=== PATIENT | female | born 1950 | race Caucasian/White ===

== ENCOUNTER 2020-04-24 06:20 | Day surgery (SDC) | payer MEDICARE ==
[~2020-04-24] VITALS: Ht 162.6 cm; Wt 52.2 kg
[~2020-04-24 06:20] MED LIST: CALCIUM 600 +1 EA12 PO; DETROL LA4 MG PO; DITROPAN XL10 MG PO; FLUOXETINE HCL20 MG PO; GARLIC1 EAC1 PO; GLUCOSAMINE CH1 EAC1 PO; HYDROCHLOROTHIA50 MG PO; MAGNESIUM; NORCO 5-325 TA1 EACH PO; OMEPRAZOLE20 MG PO; ONE DAILY WOME1 EACH PO; PANTOPRAZOLE SO40 MG PO; TOLTERODINE TART4 MG PO; TOVIAZ8 MG PO; TRETINOIN20 G1 TOP; VITAMIN B-1001 EACH PO; VITAMIN E1000 UNIT PO
[2020-04-24] MEDS ORDERED: OXYBUTYNIN CHLO10 MG PO (06:34)
[2020-04-24] MEDS ORDERED: PROZAC20 MG PO (06:35)
[2020-04-24] MEDS ORDERED: PROTONIX20 MG PO (06:35)
--- NOTE | 2020-04-24 08:28 | NUR ---
04/24/20 0828 Lissette Fernandez 0820- PT TO PACU IN SUPINE POSITION. AWAKENS EASILY TO VOICE. RESPONDING TO QUESTIONS APPROPRIATELY. DENIES PAIN OR NAUSEA. BREATHING EASY AND UNLABORED. SPO2 >95% ON 3 L O2 VIA NC. PT ENCOURAGED TO PASS GAS. 0827- MD AT BEDSIDE TALKING WITH PATIENT. PT AWAKENS EASILY TO VOICE AND TALKING APPROPRIATELY WITH MD. BREATHING EASY AND UNLABORED. O2 TITRATED DOWN TO ROOM AIR. SPO2 >95% .
--- NOTE | 2020-04-24 10:26 | NUR ---
PT ALERT, ORIENTED AND SEEMS VERY MUCH IN CONTROL. PT MENTIONED THAT THIS EGD IS FOLLOW-UP TO CHECK FOR BLEEDING. ALL QUESTIONS ASKED-ANSWERED. PT ASKED FOR PRAYER. WILL FOLLOW NEEDED
--- NOTE | 2020-04-25 07:48 | OR ---
[facility] [address], [place] [address] Signed DATE OF OPERATION: 04/24/2020 SURGEON: Melissa Wolf MD PREOPERATIVE DIAGNOSES: 1. History of upper gastrointestinal bleeding in 2019 with pre-pyloric antral ulcers. 2. Surveillance history of mild proctitis. POSTOPERATIVE DIAGNOSES: 1. Healed gastric ulcers. 2. Benign-appearing midesophageal plaques (biopsied). 3. Scattered diverticula of colon. 4. Mild proctitis (biopsied). PROCEDURES: 1. Esophagogastroduodenoscopy with biopsy. 2. Total colonoscopy to cecum with rectal biopsy. ANESTHESIA: Intravenous sedation, fentanyl 150 mcg and Versed 5 mg. INDICATIONS: A 70-year-old white woman is a patient of Frances Antonio. Last summer, she had melena and anemia and was evaluated by Dr. Herrera in April including upper endoscopy, which showed pre-pyloric antral ulcerations. She was treated with Protonix. The patient does take Fosamax and has maintained treatment with proton pump inhibitor therapy as well. Additionally, she has a history of mild proctitis on prior colonoscopy. She is admitted at this time to undergo surveillance colonoscopy as well as upper endoscopy. She understands the risks of bleeding, infection, and perforation. FINDINGS: Upper endoscopy showed no sign of persistent ulceration of the stomach in any way. CLOtest was negative. There were esophageal plaques in the mid esophagus, which were biopsied and of little consequence most likely. On colonoscopy, the prep was excellent. Complete colonoscopy was undertaken to the cecum. There were scattered diverticula throughout. There was no sign of stricture neoplasm, no polyps. There was persistent mild proctitis, for which biopsies were Electronically Signed By: MELISSA WOLF MD 04/25/20 0748 PATIENT NAME: EVANGELINA OAKLEY OPERATIVE REPORT DATE OF : 50 REPORT #: [id number] PHYSICIAN: MELISSA WOLF MD PCP: FRANCES ANTONIO PA-C REPORT IS CONFIDENTIAL AND NOT TO BE RELEASED WITHOUT AUTHORIZATION [facility] [address], [place] [address] Signed obtained. DESCRIPTION OF PROCEDURE: The patient was brought to the endoscopy suite, given topical Hurricaine spray. Hypopharyngeal anesthesia and placed in lateral decubitus position. She was given intravenous sedation to the point of slurred speech and nystagmus with full cardiopulmonary monitoring. A bite block was placed. An Olympus video upper endoscope passed by hypopharynx, vocal cords were normal. Scope was passed down the esophagus, where a few small plaques were noted in the mid esophagus. Scope was passed to the stomach, which was insufflated with air. Rugal folds were normal. There was no sign of ulceration and close inspection of the antrum and pylorus showed no sign of ulceration or other abnormalities. Scope was passed through the pylorus into the duodenum, which was normal. The scope was withdrawn. Biopsies taken of the antrum for both FREDRICK and pathologic testing. Retroflexed view was undertaken showing a good flap valve and no sign of proximal ulceration or gastritis. The scope was withdrawn to the distal esophagus. Biopsies were obtained there, as there was mild inflammation possibly. The scope was withdrawn and a white mid esophageal plaques were noted. There were not worrisome in appearance, but were biopsied nevertheless. Further withdrawal of scope showed no sign of other abnormality. There was no sign of Story epithelium. Plans were then made for colonoscopy. Additional sedation was given. Digital rectal examination was found to be normal. An Olympus video colonoscope was passed into the rectum and manipulated throughout the colon, showing an excellent bowel prep overall. The scope was ultimately advanced to the cecum. The cecum appeared normal as did the appendiceal orifice. The scope was withdrawn. Careful inspection showed no sign of abnormality other than a few scattered diverticula. In the rectum was mild proctitis, not unlike previous findings. Biopsies were obtained. Scope was retroflexed and ultimately removed. The patient was taken to the recovery room in good condition. CONCLUDING DIAGNOSES: 1. Resolved gastric ulcers. 2. Mid esophageal plaques (biopsied). 3. Scattered diverticula. 4. Mild proctitis. PLAN: She will return to the ongoing care of Frances Antonio. I would recommend repeat colonoscopy in 10 years sooner if clinically indicated. We would recommend continued use of Protonix under the circumstances of her prior ulceration. Mindful of theoretic risks of calcium metabolism sequela while on PPI medication. Electronically Signed By: MELISSA WOLF MD 04/25/20 0748 PATIENT NAME: EVANGELINA OAKLEY OPERATIVE REPORT DATE OF : 50 REPORT #: [id number] PHYSICIAN: MELISSA WOLF MD PCP: FRANCES ANTONIO PA-C REPORT IS CONFIDENTIAL AND NOT TO BE RELEASED WITHOUT AUTHORIZATION [facility] [address] [place] [id number] Signed Melissa Wolf MD JM/MODL /[id number] Copies: ~ Electronically Signed By: MELISSA WOLF MD 04/25/20 0748 PATIENT NAME: EVANGELINA OAKLEY OPERATIVE REPORT DATE OF : 50 REPORT #: [id number] PHYSICIAN: MELISSA WOLF MD PCP: FRANCES ANTONIO PA-C REPORT IS CONFIDENTIAL AND NOT TO BE RELEASED WITHOUT AUTHORIZATION
--- NOTE | 2020-04-25 10:36 | PATH ---
[facility] [address] [place], [place] [address] Signed SPECIMEN(S): A ANTRUM/PYLORUS SPECIMEN(S): B LOWER ESOPHAGUS SPECIMEN(S): C ESOPHAGUS PLAQUES SPECIMEN(S): D RECTUM SPECIMEN SOURCE: A. ANTRUM/PYLORUS B. LOWER ESOPHAGUS C. ESOPHAGUS PLAQUES D. RECTUM CLINICAL HISTORY: Melena, history of antral ulcers. MICROSCOPIC DESCRIPTION: Histologic sections of all submitted blocks are examined by light microscopy. These findings, together with the gross examination, support the pathologic diagnosis. FINAL PATHOLOGIC DIAGNOSIS: A. Stomach, antrum/pylorus, biopsy: - Reactive gastropathy. - Negative for Helicobacter organisms on HE stain. - Negative for dysplasia or malignancy. B. Esophagus, lower, biopsy: - Squamous mucosa with minimal chronic inflammation and reactive changes, suggestive of mild reflux esophagitis. - Negative for intestinal metaplasia, dysplasia, or malignancy. C. Esophagus, plaques, biopsy: - Candidal esophagitis. - Negative for intestinal metaplasia, dysplasia, or malignancy. D. Rectum, biopsy: - Rectal mucosa with no histopathologic abnormality. - Negative for dysplasia or malignancy. NAL:cml:C2NR GROSS DESCRIPTION: Four specimens are received in four containers, labeled "RC." A. The specimen, labeled "RC, antrum biopsy," is received in formalin and consists of two jimenez soft tissue fragments that measure 0.2 cm in greatest dimension. The specimen is entirely submitted in cassette (A1). PATIENT NAME: EVANGELINA OAKLEYN PATHOLOGY DATE OF : 50 REPORT #: [id number] PHYSICIAN: RADHA MCFARLANE PCP: FRANCES CONTI PA-C REPORT IS CONFIDENTIAL AND NOT TO BE RELEASED WITHOUT AUTHORIZATION [facility] [address] [place], [place] [address] Signed B. The specimen, labeled "RC, esophagus biopsy," is received in formalin and consists of two jimenez soft tissue fragments that measure 0.2 cm in greatest dimension. The specimen is entirely submitted in cassette (B1). C. The specimen, labeled "RC, esophagus plaques biopsy," is received in formalin and consists of five jimenez soft tissue fragments that measure 0.2 cm in greatest dimension. The specimen is entirely submitted in cassette (C1). D. The specimen, labeled "RC, rectum biopsy," is received in formalin and consists of three jimenez soft tissue fragments that measure 0.2 cm in greatest dimension. The specimen is entirely submitted in cassette (D1). JS (under the direct supervision of a pathologist) The Gross Description was prepared using a voice recognition system. The report was reviewed for accuracy; however, sound-alike word errors, addition and/or deletions may occur. If there is any question about this report, please contact Client Services. PERFORMING LABORATORY: The technical component was performed by [facility], [address] [place] [address] (Magnetic Tester: Larisa Perez MD; CLIA# [id number]). [facility], [address] [address] (CLIA# [id number]). Diagnostician: Yudi Babin MD Pathologist Electronically Signed 04/25/2020 Copies: ~ PATIENT NAME: EVANGELINA OAKLEY PATHOLOGY DATE OF : 50 REPORT #: [id number] PHYSICIAN: RADHA PATHOLOGY PCP: FRANCES CONTI PA-C REPORT IS CONFIDENTIAL AND NOT TO BE RELEASED WITHOUT AUTHORIZATION
== END 2020-04-24 08:55 | disposition home or self-care (01) ==
LOC: DS 06:20 → OPS 06:20 → DS 06:45 → OPS 08:55
PROVIDERS: Surgery
PROC: 0DB38ZX Excision of Lower Esophagus, Via Natural or Artificial Opening Endoscopic, Diagnostic (ICD-10-PCS; 2020-04-24)
PROC: 0DBP8ZX Excision of Rectum, Via Natural or Artificial Opening Endoscopic, Diagnostic (ICD-10-PCS; 2020-04-24)
PROC: 0DB58ZX Excision of Esophagus, Via Natural or Artificial Opening Endoscopic, Diagnostic (ICD-10-PCS; principal; 2020-04-24 06:45)
PROC: 0DB78ZX Excision of Stomach, Pylorus, Via Natural or Artificial Opening Endoscopic, Diagnostic (ICD-10-PCS; 2020-04-24 06:45)
DX: Z12.11 Encounter for screening for malignant neoplasm of colon (principal); K57.30 Diverticulosis of large intestine without perforation or abscess without bleeding; B37.81 Candidal esophagitis; K31.9 Disease of stomach and duodenum, unspecified; K21.9 Gastro-esophageal reflux disease without esophagitis; Z88.2 Allergy status to sulfonamides; Z79.899 Other long term (current) drug therapy; Z96.651 Presence of right artificial knee joint
CPT/HCPCS: 99153; G0500; J0690; J2250; J3010; J7121

== ENCOUNTER 2023-03-24 15:34 | Emergency (ER) | payer MEDICARE ==
[~2023-03-24] VITALS: Ht 162.6 cm; Wt 52.2 kg
[~2023-03-24 15:34] MED LIST changes: +OXYBUTYNIN CHLO10 MG PO; +PROTONIX20 MG PO; +PROZAC20 MG PO
[2023-03-24] MEDS ORDERED: TYLENOL325 M1 PO (15:47)
[2023-03-24] MEDS ORDERED: VOLTAREN ARTHRI20 GM (15:49)
[2023-03-24 17:30] VITALS: BP 163/88
== END 2023-03-24 17:31 | disposition home or self-care (01) ==
LOC: ED 15:34
DX: I83.892 Varicose veins of left lower extremity with other complications (principal); Z88.2 Allergy status to sulfonamides; Z79.899 Other long term (current) drug therapy
CPT/HCPCS: 36415; 80053; 85025; 93971; 99284 25